=== PATIENT | male | born 1960 | race Caucasian/White ===

== ENCOUNTER 2018-01-31 17:35 | Emergency (ER) | payer BC ==
[~2018-01-31] VITALS: Ht 175.3 cm; Wt 88.5 kg
[2018-01-31] MEDS ORDERED: METFORMIN HCL500 MG PO (17:47)
[2018-01-31] MEDS ORDERED: CYMBALTA20 MG PO (17:47)
[2018-01-31] MEDS ORDERED: ZOLOFT25 MG PO (17:48)
[2018-01-31] MEDS ORDERED: COZAAR 50 MG TA50 M2 PO (17:48)
[2018-01-31 18:19] LABS: HEMATOCRIT 46.1 % (42.0-52.0); HEMOGLOBIN 16.2 gm/dL (14.0-18.0); MCH 29.9 pg (26.0-34.0); MCHC 35.2 g/dL (28.0-37.0); MCV 84.8 fL (80.0-100.0); MPV 8.2 fl. (7.2-11.1); NUCLEATED RBCS 0 /100WBC; PLATELET COUNT* 199 thou/uL (150-400); RBC 5.44 mil/uL (4.50-6.00); RDW-CV 14.2 % (10.5-14.5); WBC 10.1 thou/uL (4.0-11.0)
[2018-01-31 18:22] LABS: ANION GAP 9 mmol/L (7-16); BUN 12 mg/dL (7-18); CALCIUM 9.1 mg/dL (8.5-10.1); CHLORIDE 106 mmol/L (98-107); CO2 25 mmol/L (21-32); GLUCOSE 129 mg/dL (70-99); POTASSIUM 4.1 mmol/L (3.5-5.1); SODIUM 140 mmol/L (136-145)
[2018-01-31 18:28] LABS: ALBUMIN 4.3 g/dL (3.4-5.0); ALKALINE PHOSPHATASE 85 U/L (46-116); SGOT 32 U/L (15-37); SGPT 76 U/L (30-65); TOTAL BILIRUBIN 0.5 mg/dL (<0.1-1.0); TOTAL PROTEIN 8.1 g/dL (6.4-8.2); TROPONIN-I LEVEL <0.06 ng/mL (<0.06)
[2018-01-31 18:42] LABS: ABSOLUTE LYMPHOCYTES 1.5 thou/uL (0.8-5.3); ABSOLUTE MONOCYTES 0.2 thou/uL (0.0-1.2); ABSOLUTE NEUTROPHILS 8.4 thou/uL (1.6-8.1); PLATELET ESTIMATE ADEQUATE
[2018-01-31 22:02] LABS: URINE BILIRUBIN NEGATIVE (Negative); URINE BLOOD NEGATIVE (Negative); URINE CLARITY CLEAR; URINE COLOR YELLOW; URINE GLUCOSE-RANDOM NEGATIVE (Negative); URINE KETONES NEGATIVE (Negative); URINE LEUKOCYTES-REFLEX NEGATIVE (Negative); URINE NITRITE-REFLEX NEGATIVE (Negative); URINE PROTEIN NEGATIVE (Negative); URINE SPECIFIC GRAVITY 1.025 (1.005-1.030); URINE UROBILINOGEN 0.2 E.U./dl (0.2-1.0)
[2018-01-31 22:10] LABS: AMP/METHAMP Negative (Negative); BARBITURATES Negative (Negative); BENZODIAZEPINES Negative (Negative); COCAINE Negative (Negative); METHADONE Negative (Negative); OPIATES Negative (Negative); PCP Negative (Negative); THC POSITIVE (Negative)
[2018-01-31 23:23] VITALS: BP 175/105
--- NOTE | 2018-02-01 10:03 | EKG ---
[place] [address] ELECTROCARDIOGRAM REPORT Name: SRIRAM MOE Room: 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 : 1960 Requested By: Pete Goodwin Order Number: [id number] MD: Perry Mota Measurements Intervals [place] Rate: 80 P: 34 MT: 173 QRS: -2 QRSD: 98 T: 26 QT: 384 QTc: 443 Interpretive Statements Sinus rhythm Probable left atrial enlargement RSR' in V1 or V2, right VCD or RVH Compared to ECG 12/30/2007 14:56:12 RSR' in V1 or V2 now present Electronically Signed On 02-01-2018 10:03:22 CDT by Perry Mota [email or web address] <ELECTRONICALLY SIGNED> By: Perry Mota MD, [facility] 02/01/18 1003 1753 1753 Perry Mota MD, [facility] /EPI
--- NOTE | 2018-02-01 10:09 | EKG ---
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
== END 2018-01-31 23:24 | disposition home or self-care (01) ==
LOC: M.ERS 17:35
PROVIDERS: Personal Emergency Response Attendant
DX: R07.9 Chest pain, unspecified (principal); I10 Essential (primary) hypertension; G89.29 Other chronic pain; Z96.653 Presence of artificial knee joint, bilateral; Z88.8 Allergy status to other drugs, medicaments and biological substances; Z88.5 Allergy status to narcotic agent